=== PATIENT | female | born 1985 | race Caucasian/White ===

== ENCOUNTER 2017-11-20 22:20 | Day surgery (SDC) | payer BC ==
[2017-11-20 22:54] VITALS: BP 121/71; TEMP 98.2; BMI 37.5
--- NOTE | 2017-11-20 23:10 | PDOC.LDHP ---
Labor and Delivery H&P Chief complaint: contractions HPI: 32 y/o at 39w0d, patient of Dr. Bennett, presents with contractions q 8- 10 mins this evening. Was seen in the office and exam was 3cm. Denies CV, LOF, or decreased FM. ROS neg for HEENT, cv, pulm, gi, gu, neuro, psych, skin, musculoskeletal or constitutional symptoms other than mentioned above. OB History Details: 1 prior 1 prior SAB Current complications: none Past Medical History: None Current medications: pre-marta vitamins Previous surgical history: none Allergies/Adverse Reactions: Allergies Allergy/AdvReac Type Severity Reaction Status Date / Time Sulfa (Sulfonamide Allergy Mild Rash Verified 11/20/17 22:55 Antibiotics) Social history: none - Physical Exam Vital signs reviewed and normal: yes General: NAD, resting Lungs: nonlabored breathing Abdomen: gravid Extremeties: no edema FHT: category 1 (120s, mod variability, + accels, no decels) [place] contractions every: single ctx - Vaginal Exam cm dilated: 3 Effacement: 25% Station: -3 - Assessment 32 y/o at 39w0d with no e/o active labor. status reassuring with reactive NST. - Plan -: D/c home with precautions. Advised to keep all appointments and continue activity counts.
== END 2017-11-20 23:20 | disposition home or self-care (01) ==
LOC: L&D/OP 22:20
PROVIDERS: ATTEND Obstetrics & Gynecology
DX: O47.1 False labor at or after 37 completed weeks of gestation (principal); Z3A.39 39 weeks gestation of pregnancy
CPT/HCPCS: 99282

== ENCOUNTER 2017-11-25 10:21 | Inpatient (IN) | payer BC ==
[2017-11-25 11:03] VITALS: BMI 37.5
[2017-11-25] MEDS: Lactated Ringer's 1,000 ML IV SCH ×2 (11:50→20:16)
[2017-11-25] MEDS ORDERED: Ibuprofen 800 MG TAB PO PRN (12:00)
[2017-11-25] MEDS ORDERED: Lidocaine 1% (PF) 30 ML VIAL SC PRN ×2 (12:00→12:14)
[2017-11-25] MEDS ORDERED: Lactated Ringer's 1,000 ML IV SCH ×2 (12:00)
[2017-11-25] MEDS ORDERED: NS w/ Oxytocin 10 units 500 ML IV SCH ×2 (12:00→12:15)
[2017-11-25] MEDS ORDERED: Penicillin G Potassium 5 MILL.UNITS in Sodium Chloride 0.9% 100 ML IVPB SCH (12:00)
[2017-11-25] MEDS ORDERED: HYDROcodone/Acetaminophen 5/325 mg Tablet PO PRN (12:00)
[2017-11-25] MEDS ORDERED: Ondansetron HCl/PF 4 MG/2 ML Vial IVP PRN ×3 (12:00→14:21)
[2017-11-25] MEDS ORDERED: NS / Oxytocin 40 units/1000ml 1,000 ML IV PRN ×2 (12:00→12:14)
[2017-11-25] MEDS ORDERED: Butorphanol Tartrate 1 MG/ML VIAL SLOW IVP PRN ×2 (12:00→12:14)
[2017-11-25] MEDS ORDERED: Promethazine HCl 25 MG/ML VIAL IM PRN ×2 (12:14→14:21)
[2017-11-25] MEDS ORDERED: Acetaminophen 500 MG TAB PO PRN (12:14)
[2017-11-25] MEDS ORDERED: Penicillin G Potassium 5 MILL.UNITS VIAL ONE (12:28)
[2017-11-25] MEDS ORDERED: DISCONTINUE ALL PREVIOUS NARCOTICS FS SCH (13:00)
[2017-11-25] MEDS ORDERED: Bupivacaine 0.5% 20 ML, fentaNYL Citrate/PF 400 MCG in Sodium Chloride 0.9% 72 ML EPIDURAL SCH (13:00)
[2017-11-25 13:05] LABS: Hemoglobin 13.6 g/dL (12.0-16.0); Mean Corpuscular Hemoglobin 32.9 pg (27.0-31.0); Mean Corpuscular Volume 94.1 fL (78.0-98.0); Platelet Count 221 thou/uL (130-400); RBC Distribution Width 11.9 % (11.5-14.5); Red Blood Cell (RBC) Count 4.13 mill/uL (4.20-5.40); White Blood Cell (WBC) Count 14.8 thou/uL (4.8-10.8)
[2017-11-25 13:41] LABS: HBSAg Index 0.25 S/CO (0-0.99); Hep B Surf Ag Non-Reactive S/CO (NonReactive); Syphilis Antibody Nonreactive (Nonreactive); Syphilis Antibody Index 0.04 S/CO (<1.00 Non-Reactive)
[2017-11-25] MEDS ORDERED: Lactated Ringer's 500 ML IV PRN (14:21)
[2017-11-25] MEDS ORDERED: Eucerin (Mineral Oil/Petrolatum,White) 30 gm Jar TOP PRN (14:21)
[2017-11-25] MEDS ORDERED: diphenhydrAMINE 50 MG/ML VIAL IVP PRN (14:21)
[2017-11-25] MEDS ORDERED: Naloxone HCl 0.4 mg/ml Vial IVP PRN ×2 (14:21)
[2017-11-25] MEDS ORDERED: ePHEDrine/0.9% NaCl/PF SYRINGE 50 mg/10 ml SLOW IVP PRN (14:21)
[2017-11-25] MEDS ORDERED: Acetaminophen 325 MG TAB PO PRN (14:21)
[2017-11-25] MEDS ORDERED: fentaNYL Citrate/PF 400 MCG, Bupivacaine 0.5% 20 ML in Sodium Chloride 0.9% 72 ML EPIDURAL SCH (14:30)
[2017-11-25] MEDS ORDERED: Communication Order-Pharmacy FS SCH (14:30)
[2017-11-25] MEDS: Penicillin G 2.5 MILL.units 2.5 MILL.UNITS in Premix Bag 1 BAG IVPB SCH (16:20)
[2017-11-25] MEDS ORDERED: Bisacodyl 10 MG SUPP PR PRN (19:02)
[2017-11-25] MEDS ORDERED: Lanolin Ointment 7 GM TUBE TOP PRN (19:02)
[2017-11-25] MEDS ORDERED: Milk Of Magnesia 30 ML UDCUP PO PRN (19:02)
[2017-11-25] MEDS ORDERED: Misoprostol 200 MCG TAB VAG PRN (19:02)
[2017-11-25] MEDS ORDERED: Preparation H Ointment 28 GM TUBE PR PRN (19:02)
[2017-11-25] MEDS ORDERED: diphenhydrAMINE 25 MG CAP PO PRN (19:02)
[2017-11-25] MEDS ORDERED: Benzocaine/Menthol 20-0.5% 60 ML CAN TOP PRN (19:02)
--- NOTE | 2017-11-25 19:05 | PDOC.OPDEL ---
OB Operative/Delivery Note Delivery Dr/Surgeon: Sabrina Pre-Delivery Diagnosis: elective induction Procedure/Post Delivery Dx: spontaneous vaginal delivery Weeks gestation: 39 Anesthesia: epidural - Findings A Sex: male - 1 min: 9 - 5 min: 9 - Additional Findings/Plan Placenta delivered: spontaneous Repaired Obstetrical Laceration: none Estimated blood loss: qbl 293ml Post delivery plan: routine recovery
[2017-11-25] MEDS ORDERED: NS / Oxytocin 40 units/1000ml 1,000 ML IV SCH (19:15)
[2017-11-25] MEDS ORDERED: Adacel (T-DAP) 0.5 ML VIAL IM ONE (20:00)
[2017-11-25] MEDS: traMADol HCl 50 MG TAB PO PRN (21:48)
[2017-11-25] MEDS: Docusate Calcium (SURFAK) 240 MG CAP PO SCH (23:26)
[2017-11-25] MEDS: Ibuprofen 800 MG TAB PO SCH (23:26)
[2017-11-26] MEDS: Penicillin G 2.5 MILL.units 2.5 MILL.UNITS in Premix Bag 1 BAG IVPB SCH (00:17)
[2017-11-26] MEDS: Ibuprofen 800 MG TAB PO SCH ×3 (02:54→18:14)
[2017-11-26] MEDS: Ferrous Sulfate 325 MG TAB PO SCH ×2 (09:00→17:00)
[2017-11-26] MEDS: Prenatal Vitamin 1 TAB PO SCH (09:00)
[2017-11-26] MEDS: Docusate Calcium (SURFAK) 240 MG CAP PO SCH ×2 (09:00→21:50)
--- NOTE | 2017-11-26 12:21 | PDOC.PP ---
Post Progress Note Post Day #: 1 PO intake tolerated: yes Flatus: yes Ambulation: yes Vital Signs (12 hours) Temp Pulse Resp BP Pulse Ox 11/26/17 12:00 98.3 F 63 16 11/26/17 08:44 98.3 F 63 16 95/62 96 11/26/17 08:00 98.3 F 63 16 99 11/26/17 04:23 98.3 F 68 16 100/61 95 11/26/17 00:32 98 F 78 16 110/56 L 96 Weight Weight 240 lb - Physical Examination General: NAD Cardiovascular: no m/r/g, RRR Respiratory: clear to auscultation bilaterally, non-labored breathing Result Diagrams: 11/25/17 12:00 Additional Labs: Post Labs Blood Type O POSITIVE 11/25/17 12:00 Hep Bs Antigen Non-Reactive S/CO (NonReactive) 11/25/17 12:00 - Assessment/Plan doing well-post day 0-1..discharge in AM.
[2017-11-26] MEDS: traMADol HCl 50 MG TAB PO PRN (22:39)
[2017-11-27] MEDS: Ibuprofen 800 MG TAB PO SCH ×2 (03:21→10:50)
[2017-11-27 06:29] VITALS: BP 117/72
[2017-11-27 08:11] VITALS: TEMP 97.6
[2017-11-27] MEDS: Docusate Calcium (SURFAK) 240 MG CAP PO SCH (08:31)
[2017-11-27] MEDS: Prenatal Vitamin 1 TAB PO SCH (08:31)
[2017-11-27] MEDS: Ferrous Sulfate 325 MG TAB PO SCH (08:31)
--- NOTE | 2017-11-27 09:05 | PDOC.PP ---
Post Progress Note Post Day #: 2 Vital Signs (12 hours) Temp Pulse Resp BP Pulse Ox 11/27/17 08:10 97.6 F 62 20 117/72 11/27/17 07:56 97.8 F 58 L 16 11/27/17 04:00 97.8 F 58 L 16 117/72 96 11/27/17 00:00 98.0 F 69 16 138/79 97 Weight Weight 240 lb - Physical Examination General: NAD Cardiovascular: no m/r/g, RRR Respiratory: clear to auscultation bilaterally, non-labored breathing Abdominal: + bowel sounds, lochia, no distention, appropriately TTP Result Diagrams: 11/25/17 12:00 Additional Labs: Post Labs Blood Type O POSITIVE 11/25/17 12:00 Hep Bs Antigen Non-Reactive S/CO (NonReactive) 11/25/17 12:00 - Assessment/Plan doing well post day 2 d/c home . follow up in 6 weeks
== END 2017-11-27 12:31 | disposition home or self-care (01) | DRG 775 ==
LOC: L&D 10:21 → 3SE 21:55
PROVIDERS: ADMIT Obstetrics & Gynecology; ATTEND Obstetrics & Gynecology
PROC: 10E0XZZ Delivery of Products of Conception, External Approach (ICD-10-PCS; principal; 2017-11-25)
PROC: 4A0HXCZ Measurement of Products of Conception, Cardiac Rate, External Approach (ICD-10-PCS; 2017-11-25)
PROC: 3E033VJ Introduction of Other Hormone into Peripheral Vein, Percutaneous Approach (ICD-10-PCS; 2017-11-25)
DX: O80 Encounter for full-term uncomplicated delivery (principal); Z3A.39 39 weeks gestation of pregnancy; Z37.0 Single live birth
CPT/HCPCS: 51702; 85027; 86780; 86850; 86900; 86901; 87340; J2405; J2540; J3010; J3490; J7050

== ENCOUNTER 2020-02-20 14:11 | Outpatient (CLI) | payer BC | END 2020-02-20 14:12 | disposition home or self-care (01) | LOC: CTENTCT 14:11 | PROVIDERS: ATTEND Otolaryngology Plastic Surgery within the Head & Neck | DX: J32.9 Chronic sinusitis, unspecified (principal) | CPT/HCPCS: 70486 ==

== ENCOUNTER 2021-02-15 07:00 | Outpatient (CLI) | payer BC | END 2021-02-15 07:01 | disposition home or self-care (01) | LOC: BICULT 07:00 | PROVIDERS: ATTEND Family Medicine | DX: R10.84 Generalized abdominal pain (principal); N20.0 Calculus of kidney; K76.0 Fatty (change of) liver, not elsewhere classified | CPT/HCPCS: 76700 ==

== ENCOUNTER 2021-03-18 09:35 | Outpatient (CLI) | payer BC | END 2021-03-18 09:36 | disposition home or self-care (01) | LOC: MRI 09:35 | PROVIDERS: ATTEND Physician Assistant Medical | DX: R10.13 Epigastric pain (principal); R93.3 Abnormal findings on diagnostic imaging of other parts of digestive tract; Z86.010 Personal history of colon polyps; K59.09 Other constipation; K21.9 Gastro-esophageal reflux disease without esophagitis; K86.2 Cyst of pancreas | CPT/HCPCS: 74183 ==

== ENCOUNTER 2021-10-15 07:54 | Outpatient (CLI) | payer BC | END 2021-10-15 07:55 | disposition home or self-care (01) | LOC: NM 07:54 | PROVIDERS: ATTEND Internal Medicine | DX: R10.12 Left upper quadrant pain (principal); R10.11 Right upper quadrant pain | CPT/HCPCS: 78227; A9537 ==

== ENCOUNTER 2021-11-05 16:07 | Outpatient (CLI) | payer BC ==
[2021-11-05 17:08] LABS: #Basophils 0.1 10x3/uL (0.0-0.2); #Eosinphils 0.2 10x3/uL (0.0-0.5); #Monocytes 0.9 10x3/uL (0.0-1.1); #Neutrophils 7.4 10x3/uL (1.5-8.4); %Basophils 0.5 % (0.0-2.0); %Eosinophils 1.6 % (0.0-6.0); %Lymphocytes 31.1 % (18.0-47.0); %Monocytes 7.5 % (0.0-10.0); Hemoglobin 12.6 g/dL (12.0-15.5); Mean Corpuscular HGB CONC 33.4 g/dL (32.0-36.0); Mean Corpuscular Hemoglobin 30.4 pg (27.0-33.0); Mean Corpuscular Volume 91.1 fl (81.6-98.3); Mean Platelet Volume 9.6 fl (7.4-10.4); Platelet Count 357 10x3/uL (150-450); RBC Distribution Width 12.6 % (11.5-14.5); Red Blood Cell (RBC) Count 4.14 10x6/uL (3.90-5.03); White Blood Cell (WBC) Count 12.6 10x3/uL (3.5-10.5)
[2021-11-05 17:21] LABS: BHCG - Serum Negative (NEGATIVE); Pregs Control Background? CLEAR/WHITE (CLR/WHITE); Pregs Control Bar Appear? YES (CONTROL BAR)
[2021-11-05 17:29] LABS: ALT (SGPT) 48 U/L (8-55); AST (SGOT) 61 U/L (5-34); Albumin 3.9 g/dL (3.5-5.0); Alkaline Phosphatase 73 U/L (40-110); Anion Gap 11 mmol/L (10-20); BUN (Urea Nitrogen) 12 mg/dL (7.0-18.7); Bilirubin, Direct 0.1 mg/dL (0.1-0.3); Bilirubin, Total 0.2 mg/dL (0.2-1.2); Calc. Creatinine Clearance 0 mL/min (70-130); Carbon Dioxide 28 mmol/L (22-29); Chloride 104 mmol/L (98-107); Estimated GFR 77; Globulin 3.1 g/dL (2.4-3.5); Glucose 85 mg/dL (70-105); Potassium 4.1 mmol/L (3.5-5.1); Sodium 139 mmol/L (136-145)
== END 2021-11-05 16:08 | disposition home or self-care (01) ==
LOC: LABBT 16:07
PROVIDERS: ATTEND Surgery
DX: Z01.812 Encounter for preprocedural laboratory examination (principal); Z20.822 Contact with and (suspected) exposure to COVID-19
CPT/HCPCS: 80053; 80076; 84703; 85025; 87811

== ENCOUNTER 2021-11-08 07:43 | Day surgery (SDC) | payer BC ==
[2021-11-07 11:38] VITALS: BMI 38.3
[2021-11-08] MEDS ORDERED: Iopamidol 30 ML ONE (09:02)
[2021-11-08] MEDS ORDERED: Bupivacaine/Epinephrine 0.25% 30 ML VIAL ONE (09:02)
[2021-11-08] MEDS ORDERED: fentaNYL Citrate/PF 100 MCG/2 ML SYRINGE ONE ×2 (09:35→11:03)
[2021-11-08] MEDS ORDERED: cefOXitin 2 GM VIAL ONE (09:45)
[2021-11-08] MEDS ORDERED: Sodium Chloride 0.9% 100 ML ONE (09:45)
[2021-11-08] MEDS ORDERED: Neostigmine Methylsulfate 3 MG/3 ML SYRINGE ONE (09:52)
[2021-11-08] MEDS ORDERED: Ketorolac Tromethamine 30 MG/ML VIAL ONE (09:52)
[2021-11-08] MEDS ORDERED: PROPOFOL 200 MG/20 ML VIAL ONE (09:52)
[2021-11-08] MEDS ORDERED: Ondansetron PF 4 MG/2 ML Vial ONE (09:52)
[2021-11-08] MEDS ORDERED: Lidocaine 1% PF 5 ML VIAL ONE (09:52)
[2021-11-08] MEDS ORDERED: Rocuronium Bromide 10 MG/ML (10ML VIAL) ONE (09:52)
[2021-11-08] MEDS ORDERED: Dexamethasone 20 MG/5 ML VIAL ONE (09:52)
[2021-11-08] MEDS ORDERED: Glycopyrrolate 0.2 MG/ML 5 ML SYRINGE ONE (09:52)
[2021-11-08] MEDS ORDERED: Promethazine HCl 25 MG/ML VIAL ONE (10:59)
== END 2021-11-08 12:55 | disposition home or self-care (01) ==
LOC: SDC 07:43
PROVIDERS: ATTEND Surgery
PROC: BF101ZZ Fluoroscopy of Bile Ducts using Low Osmolar Contrast (ICD-10-PCS; principal; 2021-11-08)
PROC: 0FT44ZZ Resection of Gallbladder, Percutaneous Endoscopic Approach (ICD-10-PCS; principal; 2021-11-08)
DX: K80.10 Calculus of gallbladder with chronic cholecystitis without obstruction (principal); E28.2 Polycystic ovarian syndrome; Z79.3 Long term (current) use of hormonal contraceptives; Z79.899 Other long term (current) drug therapy; Z88.2 Allergy status to sulfonamides
CPT/HCPCS: 47532; 88304; C1713; J0694; J1100; J1885; J2405; J2550; J2704; J3490; Q9967